=== PATIENT | male | born 1980 | race Caucasian/White ===

== ENCOUNTER 2017-03-22 22:02 | Emergency (ER) | payer OTHER ==
[2017-03-22 22:30] VITALS: BP 130/88
--- NOTE | 2017-03-22 22:51 | ER Document Report ---
ED General - General Chief Complaint: Syncope Stated Complaint: SYNSCOPE Time Seen by Provider: 03/22/17 22:37 Notes: Patient is a 36-year-old male who had a syncopal episode while visiting a sick family member here in the ER. Patient says that he started feel lightheaded and dizzy and then fainted. Family says that his forehead hit the wall and then he went to the floor. Patient denies any pain from the fall. He denies any neck or head pain. He denies any chest pain or shortness of breath prior to or after the syncopal episode. He says he has had a syncopal episode in the past. He says that previous syncopal episodes were always related to emotional stress. He said tonight he was of course having some emotional stress due to his sick family member. He denies any recent fevers or infections. He does take a high cholesterol and high blood pressure medication. He says that he does follow closely with primary care doctor. He denies any focal weakness or numbness. He has no other complaints at this time. He denies having lightheadedness or dizziness upon standing over last several days. - Related Data Allergies/Adverse Reactions: Penicillins Allergy (Verified 03/22/17 22:20) Sulfa (Sulfonamide Antibiotics) Allergy (Verified 03/22/17 22:20) Past Medical History - Social History Smoking Status: Never Smoker Frequency of alcohol use: None Drug Abuse: None Family History: Reviewed & Not Pertinent Review of Systems - Review of Systems Notes: My Normal Review Basic REVIEW OF SYSTEMS: CONSTITUTIONAL : Denies fever, chills, or sweats. Denies recent illness. EENT: Denies eye, ear, throat, or mouth pain or symptoms. Denies nasal or sinus congestion. CARDIOVASCULAR: Denies chest pain. RESPIRATORY: Denies cough, cold, or chest congestion. Denies shortness of breath, difficulty breathing, or wheezing. GASTROINTESTINAL: Denies abdominal pain. Denies nausea, vomiting, or diarrhea. Denies constipation. Last BM: GENITOURINARY: Denies difficulty urinating, painful urination, burning, frequency, or blood in urine. MUSCULOSKELETAL: Denies neck or back pain or joint pain or swelling. SKIN: Denies rash or skin lesions. NEUROLOGICAL: Had a syncopal episode. Denies headache. Denies weakness or paralysis or loss of use of either side. Denies problems with gait or speech. Denies sensory or motor loss. ALL OTHER SYSTEMS REVIEWED AND NEGATIVE. Physical Exam - Vital signs Vitals: Resp 22 H 03/22/17 22:13 - Notes Notes: General Appearance: Well nourished, alert, cooperative, no acute distress, no obvious discomfort. Well-appearing. Vitals: reviewed, See vital signs table. Head: no swelling or tenderness to the head Eyes: PERRL, EOMI, Conjuctiva clear Mouth: No decreasd moisture Lungs: No wheezing, No rales, No rhonci, No accessory muscle use, good air exchange bilaterally. Heart: Normal rate, Regular rythm, No murmur, no rub Neck: No tenderness palpation of the neck. Full range of motion of the neck without pain. Neck: No tenderness palpation of thoracic or lumbar spine. No step-offs or deformities. Abdomen: Normal BS, soft, No rigidity, No abdominal tenderness, No guarding, no rebound, no abdominal masses, no organomegaly Extremities: strength 5/5 in all extremities, good pulses in all extremities, no swelling or tenderness in the extremities, no edema. Skin: warm, dry, appropriate color, no rash Neuro: speech clear, oriented x 3, normal affect, responds appropriately to questions. Renal nerves II through XII are intact. Distal sensation intact. Patient moves all extremities without difficulty. Normal gait. Normal Romberg. Course - Vital Signs Vital signs: Temp Pulse Resp BP Pulse Ox 99.0 F 12 L 22 H 130/88 H 97 03/22/17 22:14 03/22/17 22:14 03/22/17 22:55 03/22/17 22:14 03/22/17 22:55 - EKG Interpretation by Me Additional EKG results interpreted by me: 03/22/17 22:50 EKG is reviewed and interpreted by me. EKG shows normal sinus rhythm with a rate of [address] segment elevation or depression. No ischemic T-wave inversions. AL interval, QRS duration, QTc intervals are within normal range. No old EKG available for comparison. - Transfer of Care Notes: 03/23/17 02:36 She is very well-appearing. It seems that his syncopal episodes are exacerbated by emotional stress. He does not have any other concerning risk factors. He had no chest pain, no headache, no shortness of breath. He has no physical exam findings or historical findings to suggest that he is anemic. Family said that he just recently had blood work done with his primary care doctor that was normal. Patient will be discharged home. Is encouraged to return to ER immediately if has recurrent syncopal episodes, chest pain, shortness of breath, or feels unwell. Patient has no signs of swelling or significant trauma to the head. He is acting appropriately. He has not had vomiting. I do not feel that he needs a CT scan of the head at this time. Dictation of this chart was performed using voice recognition software; therefore, there may be some unintended grammatical errors. Discharge - Discharge Clinical Impression: Syncope Qualifiers: Syncope type: unspecified Qualified Code(s): R55 - Syncope and collapse Condition: Good Disposition: HOME, SELF-CARE Additional Instructions: Please sit down immediately if you feel that you are getting light headed or feel unwell. Please follow up with your doctor within one week for close reevaluation. Please return to the ER immediately if you have recurrent passing out episodes, chest pain, or feel unwell. Referrals: CARLIE SANDOVAL MD [Primary Care Provider] - Follow up as needed
--- NOTE | 2017-03-23 17:36 | EKG REPORT ---
SEVERITY:- NORMAL ECG - SINUS RHYTHM : Confirmed by: Kelsie Holland MD 23-Mar-2017 17:34:43
== END 2017-03-22 23:14 | disposition home or self-care (01) ==
LOC: ER 22:02
DX: R55 Syncope and collapse (principal); Z73.3 Stress, not elsewhere classified; E78.00 Pure hypercholesterolemia, unspecified; I10 Essential (primary) hypertension; Z79.899 Other long term (current) drug therapy; Z88.0 Allergy status to penicillin; Z88.2 Allergy status to sulfonamides
CPT/HCPCS: 82962; 93005; 93010; 99284